=== PATIENT | female | born 2000 | race Caucasian/White ===

== ENCOUNTER 2020-04-29 14:58 | Emergency (ER) | payer BC, SELFPAY ==
[2020-04-29 15:00] VITALS: BP 130/76; PULSE 93; RESP 17; TEMP 36.1; O2SAT 97; BMI 27.8
--- NOTE | 2020-04-29 15:11 | CT_ITS ---
STUDY: CT ABDOMEN AND PELVIS WITH CONTRAST REASON FOR EXAM: Female, 19 years old. PT STATED RLQ PAIN X 1 WEEK RADIATION DOSAGE (If Supplied By Facility): CTDIvol = ( 13.44 ) mGy, DLP = ( 876.89 ) mGycm TECHNIQUE: Transaxial images were obtained from the dome of the diaphragm to the symphysis pubis without oral contrast. IV 100mL Isovue-300 was administered. Sagittal and coronal images were reconstructed. Individualized dose optimization techniques were used for this CT. COMPARISON: None. FINDINGS: The visualized lung bases are unremarkable. The visualized portions of the heart are within normal limits. Normal liver. Normal gallbladder and extrahepatic biliary system. Normal spleen. Normal pancreas. Normal bilateral adrenal glands. Normal right kidney. Normal left kidney. Normal visualized stomach. Normal small intestine. Normal colon. The appendix is visualized and appears normal. There are mildly enlarged lymph nodes in the right lower quadrant mesentery which short axis measuring less than 7 mm. Normal abdominal aorta. Normal inferior vena cava. Normal retroperitoneum. Normal urinary bladder. Normal abdominal wall. Normal osseous structures. CT/Abdomen/Pelvis W IV Cont ONLY IMPRESSION: 1. Normal CT appearance of the appendix. 2. Prominent lymph nodes in the right lower quadrant mesentery may represent reactive adenopathy or mesenteric adenitis. No dominant loyd mass. Electronically Signed: Mario Coleman MD ([place]) at 17:37 EDT , Service support ,
--- NOTE | 2020-04-29 15:13 | ED.DCSUM_ITS ---
History of Present Illness Chief Complaint: Abd Pain Informant: Patient, Family Onset: Days - 6 Context: Gradual Onset Timing: Continuous Current Severity: Severe Maximum Severity: Severe Narrative: 19 year-old female presents for abdominal pain. She states she started to have some vague abdominal pain in the periumbilical area about 6 days ago. She has had a few episodes of diarrhea this week. She states that the pain has gradually gotten worse and moved into the right lower quadrant. She states she went to an urgent care and had a urinalysis performed which was negative for infection. She was told to come here out of concern for appendicitis. Patient has nausea without vomiting. She feels generally unwell. She has not had a fever. Denies any vaginal complaints or urinary complaints. Past Medical History - Allergies and Home Meds Allergies/Adverse Reactions: Allergies No Known Allergies Allergy (Verified 04/29/20 14:59) Primary Care Physician: Oliverio Greenwood DO [Primary Care Provider] - Prior records reviewed: Yes Past Medical History: - - Kidney stones Lives: With Family Smoking Status: Never smoker Alcohol: None Drugs: None Review of Systems General: Denies: Chills, Fever, Malaise Eyes: Denies: Visual changes - bilaterally, Diplopia ENT: Denies: Rhinorrhea, Sore throat Cardiovascular: Denies: Chest pain, Palpitations Respiratory: Denies: Dyspnea, Cough, Dyspnea on exertion Gastrointestinal: Reports: Abdominal pain, Diarrhea. Denies: Melena, Hematochezia Genitourinary: Denies: Dysuria, Hematuria, Frequency Musculoskeletal: Denies: Myalgias Skin: Denies: Rash, Abscess Neurological: Denies: Headache Endocrine: Denies: Polyuria, Polydipsia Physical Exam Vital Signs/Narrative: Vital Signs Temp Pulse Resp BP Pulse Ox 04/29/20 15:00 96.9 F L 93 17 130/76 H 97 Inital Vital Signs reviewed: Yes General: Well nourished, Acute Distress - Mild distress holding her right lower quadrant. Head: Normocephalic, Atraumatic Eyes: Perrl ENT: Moist mucous membranes, No rhinorrhea Cardiovascular: Regular rate, Regular rhythm Abdomen: Rebound tenderness, Rovsig's sign, Townsend's sign. Negative for: Psoas sign Back: Nontender Extremities: Nontender Skin: Normal color, No rash Neurological: Alert, Oriented x3 Psychological: Normal affect Diagnostic/Tx/Re-eval - Medical Decision Making She presents with abdominal pain which is been going on for about a week. She states it is more in her right lower quadrant. She has a history of kidney stones but states it does not feel the same. She is not had any urinary or vaginal complaints. Her blood work shows a slight leukocytosis at 12.2. Her renal function is normal. She does have a small amount of blood in her urine, however given concern for possible appendicitis I did do a CT with IV contrast. There is no appendicitis and no stone was identified. Radiologist did mention prominent lymph nodes in the right lower quadrant mesentery may represent reactive adenopathy or mesenteric adenitis. On reevaluation the patient is comfortable. Given she has no acute surgical issue I do not believe she needs to stay in the hospital. Her family is present and able watcher. She is counseled that if she has continued pain in this area that she should come back tomorrow for repeat evaluation. Patient and family comfortable with that plan. ED Disposition - Plan for ED Patient: Disposition: Home or Assisted Living Diagnosis: Mesenteric adenitis Instructions: ED Abdominal Pain Appendx Poss, ED Adenitis Mesenteric Prescriptions: Hydrocodone Bitart/Apap 5-325 [[place] 5MG-325MG] 1 tab PO Q6H PRN PRN 2 Days #10 tab PRN Reason: Pain Prescription Printed Ondansetron [Zofran Odt] 4 mg PO Q8H PRN PRN #10 tab PRN Reason: Nausea Prescription Printed Referrals: Oliverio Greenwood DO [Primary Care Provider] -
[2020-04-29] MEDS: Morphine 4 MG/ML Syringe IV (15:38)
[2020-04-29] MEDS: 0.9% Normal Saline 1,000 ML 1000 ML IV (15:38)
[2020-04-29] MEDS: Ondansetron 4 MG/2 ML Vial IV (15:38)
[2020-04-29 15:43] LABS: Absolute Lymphocyte Count 2.26 X10^3/uL (0.83-4.51); Absolute Neutrophil Count 8.9 X10^3/uL (2.0-7.7); Basophil# 0.04 X10^3/uL; Basophil% 0.3 % (0-1); Eosinophil# 0.07 X10^3/uL; Eosinophils% 0.6 % (0-5); Hematocrit 40.6 % (37-47); Hemoglobin 13.1 g/dL (12.0-15.0); Lymphocyte # 2.26 X10^3/ul (4.0); Lymphocyte % 18.5 % (19-41); Mean Corp Hgb Conc 32.3 g/dL (32-36); Mean Corpuscular Hgb 28.8 pg (27.0-32.0); Mean Corpuscular Volume 89.2 fL (81-99); Mean Platelet Vol. 10.2 fl (6.2-12.0); Monocyte# 0.85 X10^3/uL; NRBC Flagged by Analyzer 0 % (0-5); Neutrophil # 8.94 X10^3/uL (2.7-7.7); Neutrophil % 73.4 % (47-70); Platelet Count 250 K/mm3 (150-450); RBC Distribution Width CV 12.8 % (11.6-14.6); RBC Distribution Width SD 41.1 fl (35.1-43.9); Red Blood Count 4.55 M/mm3 (4.2-5.4); White Blood Count 12.2 K/mm3 (4.4-11.0)
[2020-04-29 15:48] LABS: Anion Gap 7 (5-15); BUN 11 mg/dL (7-18); BUN/Creat Ratio 14.4 RATIO (10-20); Calcium,Total 8.7 mg/dL (8.5-10.1); Chloride 109 mmol/L (98-107); Creatinine, Serum 0.76 mg/dL (0.55-1.02); EST Glomerular Filtration Rate 102 mL/min (>60); Est Glom Filt Rate - Afr Amer 124 mL/min (>60); Estimated Creatinine Clearance 119.11 ml/min; Glucose 79 mg/dL (74-106); Sodium Level 139 mmol/L (136-145)
[2020-04-29 16:47] LABS: Mucous, Urine 0 SEEN /hpf (<or=2+); Squamous Epithelial Cells - UA 0 SEEN /hpf (5-10); White Blood Cells 0 SEEN /hpf (0-5)
[2020-04-29 16:51] LABS: Color, Urine Yellow (Yellow); Glucose, Dipstick Normal (Normal); Ketone-Dipstick 15 mg/dl (Negative); Leukocyte Esterase-Dipstick Negative /ul (Negative); Nitrite-Dipstick Negative (Negative); Occult Blood-Urine 250 /ul (Negative); Protein-Dipstick Negative (Negative); Urine Bilirubin Dipstick Negative (Negative); Urine Clarity Clear (Clear); Urine Urobilinogen Normal (Normal)
[2020-04-29 16:53] LABS: Internal QC Validated? YES +Cl - CLEAR BKGD; Pregnancy, Urine Negative Negative
[2020-04-29 17:05] LABS: Bacteria 1+ /hpf (None Seen); Red Blood Cells-Urine 0-5 SEEN /hpf (0-5)
[2020-04-29 17:32] VITALS: BP 133/80; PULSE 101; RESP 16; TEMP 36.5; O2SAT 100
== END 2020-04-29 19:05 | disposition home or self-care (01) ==
PROVIDERS: Emergency Provider Student in an Organized Health Care Education/Training Program; PCP Preventive Medicine Occupational Medicine
DX: I88.0 Nonspecific mesenteric lymphadenitis (principal); Z87.442 Personal history of urinary calculi
CPT/HCPCS: 74177; 80048; 81001; 81025; 85025; 96361; 96374; 96375; 99283; J7030; Q9967; A4216; J2405

== ENCOUNTER 2020-04-30 15:20 | Emergency (ER) | payer BC, SELFPAY ==
[2020-04-29 15:00] VITALS: BMI 27.8
[2020-04-30 15:22] VITALS: BP 113/62; BP 113/63; PULSE 72; PULSE 85; RESP 17; RESP 18; TEMP 36.6; O2SAT 99; BMI 27.6
--- NOTE | 2020-04-30 15:51 | CT_ITS ---
STUDY: CT ABDOMEN AND PELVIS WITH CONTRAST REASON FOR EXAM: Female, 19 years old. RT SIDED ABD PAIN, HAD CT ABD/PELVIS WITH IV ONLY YESTERDAY RADIATION DOSAGE (If Supplied By Facility): CTDIvol = ( 10.05 ) mGy, DLP = ( 687.6 ) mGycm TECHNIQUE: Transaxial images were obtained from the dome of the diaphragm to the symphysis pubis without oral contrast. Oral and amp; IV Gastrografin and amp; 100mL Isovue-300 was administered. Sagittal and coronal images were reconstructed. Individualized dose optimization techniques were used for this CT. COMPARISON: Yesterday FINDINGS: The visualized lung bases are unremarkable. The visualized portions of the heart are within normal limits. Normal liver. Normal gallbladder and extrahepatic biliary system. Normal spleen. Normal pancreas. Normal bilateral adrenal glands. Normal right kidney. Normal left kidney. Normal visualized stomach. Normal small intestine. Retained stool noted throughout the colon. The appendix is visualized and appears normal. Appendix best seen on coronal recon images 60 through 65. No periappendiceal inflammatory changes noted, there are stable subcentimeter lymph nodes in the right lower quadrant. Normal abdominal aorta. Normal inferior vena cava. Normal retroperitoneum. Normal urinary bladder. Normal visualized uterus. No suspicious adnexal mass or free fluid Normal abdominal wall. Normal osseous structures. CT/Abdomen/Pelvis WITH Contrast IMPRESSION: No suspicious solid organ abnormality No CT evidence of an acute inflammatory process, normal appendix visualized No free intraperitoneal fluid, air, or suspicious adenopathy Retained stool Electronically Signed: Sotero Kilpatrick MD at 17:46 EDT , Service support ,
--- NOTE | 2020-04-30 16:43 | ED.DCSUM_ITS ---
- ER Visit Summary Date of Service: 04/30/20 Chief Complaint: [Abdominal pain] History of Present Illness: The patient is a 19 F [resents to the emergency department complaint of abdominal pain that she has had off and on for approximately a week. Patient states that her pain really got worse yesterday and was seen in the emergency department and had a work-up which showed a slightly elevated white blood cell count. Patient had a CT scan of the abdomen pelvis without contrast that showed a normal appendix at that time and some slight enlarged adenopathy of the right lower quadrant. Urinalysis was unremarkable and hCG was negative at that time. States that she woke up this morning feeling somewhat improved but continued have some discomfort and went to work. Patient continues to have discomfort to the right lower quadrant is worse with walking and moving. She is had decreased appetite and nausea when she attempted to eat small amount of bread and peanut butter. Patient denies urinary symptoms. Her last menstrual period was about a month ago.] Physical Examination: [HEENT-PERRLA, EOMI. Cranial nerves II through XII grossly intact. TMs clear. Mucous membranes moist. No adenopathy. Cardiovascular-regular rate and rhythm without murmur or ectopy Lungs-clear to auscultation, chest wall stable without crepitus or subcu emphysema Abdomen-normoactive bowel sounds, soft. Patient has tenderness palpation over right lower quadrant some guarding. There is no rebound, rigidity, or peritoneal signs. Also has some mild tenderness over right upper quadrant. Townsend sign. No Rovsing's. Extremities-intact ?4, normal range of motion, normal pulses, atraumatic] Test Results: [Lab work and CT scan of the M pelvis with IV and p.o. contrast ordered and pending] Emergency Department Course and Treatment: We will establish an IV fluids started. She refused pain medication. [] Treatment Plan: [Patient turned over to evening physician awaiting lab results, CT results and final disposition.] Disposition: [Pending] Impression: [Abdominal pain] This note was generated with [employer] dictation software. It may contain incorrect words, spelling, and punctuation that were not noted in review of the chart prior to signing ED Disposition - Plan for ED Patient: Referrals: Oliverio Greenwood DO [Primary Care Provider] -
[2020-04-30 16:51] LABS: Absolute Lymphocyte Count 2.54 X10^3/uL (0.83-4.51); Absolute Neutrophil Count 4.6 X10^3/uL (2.0-7.7); Basophil# 0.03 X10^3/uL; Basophil% 0.4 % (0-1); Eosinophil# 0.12 X10^3/uL; Eosinophils% 1.5 % (0-5); Hematocrit 39.7 % (37-47); Lymphocyte # 2.54 X10^3/ul (4.0); Lymphocyte % 32.4 % (19-41); Mean Corp Hgb Conc 32.7 g/dL (32-36); Mean Corpuscular Volume 88.6 fL (81-99); Mean Platelet Vol. 10.2 fl (6.2-12.0); Monocyte# 0.54 X10^3/uL; Monocyte% 6.9 % (0-10); NRBC Flagged by Analyzer 0 % (0-5); Neutrophil # 4.58 X10^3/uL (2.7-7.7); Neutrophil % 58.4 % (47-70); Platelet Count 241 K/mm3 (150-450); RBC Distribution Width CV 12.5 % (11.6-14.6); RBC Distribution Width SD 40.4 fl (35.1-43.9); Red Blood Count 4.48 M/mm3 (4.2-5.4); White Blood Count 7.8 K/mm3 (4.4-11.0)
[2020-04-30] MEDS: 0.9% Normal Saline 1,000 ML 125 ML IV (17:00)
[2020-04-30 17:11] LABS: ALB/GLOB Ratio 0.9 RATIO (0.9-2.4); AST(SGOT) 16 U/L (15-37); Alanine Aminotransfer ALT/SGPT 20 U/L (13-56); Albumin, Serum 3.8 g/dL (3.2-5.0); Alkaline Phosphatase 67 U/L (45-117); Anion Gap 7 (5-15); BUN 10 mg/dL (7-18); BUN/Creat Ratio 13.6 RATIO (10-20); Calcium,Total 8.6 mg/dL (8.5-10.1); Chloride 109 mmol/L (98-107); Creatinine, Serum 0.74 mg/dL (0.55-1.02); EST Glomerular Filtration Rate 107 mL/min (>60); Est Glom Filt Rate - Afr Amer 129 mL/min (>60); Estimated Creatinine Clearance 122.33 ml/min; Globulin 4.1 g/dL (2.2-4.2); Glucose 67 mg/dL (74-106); Potassium 3.6 mmol/L (3.5-5.1); Protein, Total 7.9 g/dL (6.4-8.2); Sodium Level 139 mmol/L (136-145)
--- NOTE | 2020-04-30 18:38 | US_ITS ---
STUDY: ULTRASOUND OF THE FEMALE PELVIS - COMPLETE REASON FOR EXAM: Female, 19 years old. RT SIDE PAIN-LOWER X 2 DAYS, LMP: 04/07/2020 TECHNIQUE: Transvaginal TECHNICAL QUALITY: Adequate. COMPARISON: None. FINDINGS: The uterus is anteverted and is in a midline position. The uterus measures 6.2 x 4.2 x 2.3 cm. Normal uterine cervix. The endometrium measures 2 mm in thickness, and is hyperechoic. There is no demonstrated endometrial mass. There is no demonstrated myometrial mass. I.U.D. - The patient does not have an I.U.D. The right ovary is visualized. The right ovary measures 2.5 x 1.8 x 1.9 cm. There is no right ovarian cyst or ovarian mass. There is no visualized right adnexal mass or complex lesion. There is normal arterial and normal venous vascularity. The left ovary is visualized. The left ovary measures 2.1 x 2.2 x 1.2 cm. There is no left ovarian cyst or ovarian mass. There is no visualized left adnexal mass or complex lesion. There is normal arterial and normal venous vascularity. There is no fluid in the cul-de-sac. The bladder is sonographically normal US/Transvaginal Non- IMPRESSION: No suspicious sonographic findings Electronically Signed: Sotero Kilpatrick MD at 19:15 EDT , Service support ,
[2020-04-30 19:53] VITALS: BP 127/70; PULSE 67; RESP 16; O2SAT 100
[2020-04-30 20:10] VITALS: BP 127/70; PULSE 67; RESP 16; O2SAT 100
== END 2020-04-30 20:11 | disposition home or self-care (01) ==
PROVIDERS: Emergency Medicine; Emergency Provider Student in an Organized Health Care Education/Training Program; PCP Preventive Medicine Occupational Medicine
DX: R10.9 Unspecified abdominal pain (principal); R11.2 Nausea with vomiting, unspecified; R59.9 Enlarged lymph nodes, unspecified
CPT/HCPCS: 74177; 76830; 80053; 85025; 93976; 99283; J7030; Q9967; A4216

== ENCOUNTER 2025-07-25 07:34 | Emergency (ER) | payer BC, SELFPAY ==
[2025-07-25 07:35] VITALS: BP 137/74; PULSE 65; RESP 16; TEMP 36.6; O2SAT 99; BMI 28.2
--- NOTE | 2025-07-25 08:07 | CT_ITS ---
PROCEDURE: BRAIN/HEAD WITHOUT CONTRAST 07/25/2025 REASON FOR EXAM: PAIN TECHNIQUE: Procedure Code: CTBR Modality: CT Procedure: BRAIN/HEAD WITHOUT CONTRAST Coronal and Sagittal reconstruction series were provided. One or more dose reduction techniques were used (e.g., Automated exposure control, adjustment of the mA and/or kV according to patient size, use of iterative reconstruction technique. RADIATION DOSE SUMMARY: CTDlvol: 45 mGy DLP: 812 mGycm COMPARISON: None FINDINGS: Brain: There is no evidence of hemorrhage, acute ischemia or mass. No extra- axial fluid collection, midline shift or mass effect. CSF Spaces: Normal Sinuses/Mastoids: Clear Bones: No fracture CT/Brain/Head without Contrast IMPRESSION: No acute intracranial abnormality Reading Location: [id number]
[2025-07-25] MEDS: 0.9% Normal Saline (1000mL) 1,000 ML 999 ML IV (08:19)
--- NOTE | 2025-07-25 08:38 | EX.ED.VIS.HA ---
HPI History of Present Illness Chief Complaint: Headache Informant: patient Narrative Narrative: Patient is a 24-year-old female presenting with worsening headaches. She states after having her child about a year ago she started getting migraines about once a month. States before that she never had migraines. She states was precipitated by having a CSF leak after her epidural which was treated. She notes that over the past few months she has had increased frequency and length of her migraines. She states she consistently has associated pain that runs like a band over the center of her head from her forehead backwards as well as another band that goes over the left side of her forehead towards her religion area. Describes the pain as burning (almost as if her hair has been pulled back too tight). She gets associated nausea, vomiting, light and sound sensitivity as well as decreased appetite. States this headache has been going on for 15 days now. Worse when she is active and better with resting. Denies any recent fevers. Notes yesterday she was seeing black spots and is having a hard time eating because of the severity of her symptoms and no appetite. She has been following with her primary care doctor and last week was prescribed rizatriptan which did not provide any relief. Last she received a shot of Toradol with no relief. She has an MRI scheduled of her brain but it is 1-1/2 weeks away. She called her PCP today and they recommend she come to the ER for further evaluation. She denies any associated weakness or current vision changes. She states she sometimes does get some watering in her left eye. She notes that after receiving a Toradol shot she has been having intermittent tingling/paresthesias to her left arm but denies any weakness or dropping anything. Denies any skin changes or rash. Nuys any family history of any neurologic disorders. No other complaints or concerns at this time. PFSH PFS Medical History no medical history Home Medications ?Medication ?Instructions ?Recorded ?Last Taken ?Type ondansetron 4 mg disintegrating 4 mg PO Q8H PRN PRN Nausea #10 tabs 04/29/20 Unknown Rx tablet desogestrel 0.15 mg-ethinyl 1 tab PO DAILY 04/30/20 Unknown History estradiol 0.03 mg tablet Allergy/AdvReac Type Severity Reaction Status Date / Time No Known Allergies Allergy Verified 07/25/25 07:37 Social History Smoking Status: Never smoker ROS ROS ED Constitutional Constitutional ED: Denies chills or fever(s) Eyes Eyes: Reports other Details: seeing black spots yesterday ; Denies blurry vision ENT ENT ED: Denies sore throat Respiratory/Chest Respiratory/Chest: Denies cough or dyspnea Gastrointestinal Gastrointestinal: Reports nausea and vomiting Musculoskeletal Musculoskeletal: Denies arthralgias, myalgias or neck pain Integumentary Denies rash Neurologic Neurologic: Reports headache(s) and paresthesias LUE; Denies weakness Psychiatric Psychiatric: Denies anxiety Hematologic/Lymphatic Hematologic/Lymphatic: Denies easy bleeding or easy bruising EXAM Physical Exam Const Vital Signs: 07/25/25 07:35 07/25/25 09:05 Temperature 97.9 F Temperature Source Oral Pulse Rate 65 67 Respiratory Rate 16 16 Blood Pressure 137/74 H 111/65 Blood Pressure Mean 95 80 Pulse Ox 99 99 Oxygen Delivery Method Room Air Room Air Positive well nourished and well developed General Appearance ED: well developed and NAD HEENT Reports normocephalic, TM's clear and moist mucous membranes Tympanic Membrane ED: Yes TM's clear Neck no lymphadenopathy, supple, no meningeal signs and no JVD Resp normal respiratory effort Cardio regular rate and regular rhythm Back/Spine Cervical Spine: Negative for cervical spine tenderness Extremity normal to inspection and full ROM Neuro oriented x3, CN's II-XII intact bilaterally and no sensory deficits noted Sensorium / Orientation: awake and alert Speech: speech normal Gait (Neuro): normal gait Motor Exam: strength 5/5 throughout Psych mental status grossly normal Skin Lesions: no lesions Rashes: no rashes MDM MDM MDM Narrative Medical decision making narrative: Patient evaluated for increasing and persistent headaches. Differential includes is not limited to cervical neuralgia, tension headaches, migraine headaches as well as space-occupying lesion or chronic subdural hemorrhage (lower risk given no report of trauma). Headaches have been going on for a year and worse over 3 months a low suspicion for infectious etiology/meningitis. Will obtain CT of the brain he is never had any prior neuroimaging looking for any space-occupying lesion or signs of CSF obstruction. Patient given migraine cocktail including IV fluids, Toradol and Compazine. On repeat evaluation patient is feeling much improved. CT imaging does not show any acute intracranial process. Patient encouraged to follow-up with primary care as well as for outpatient MRI. Will be given referral for neurology. She verbalized agreement understand this plan. Discharged home in stable condition. Radiography Diagnostic Testing: Clinical Impression(s) from Imaging Studies Brain CT 07/25/25 08:07 IMPRESSION: No acute intracranial abnormality Reading Location: [facility] Discharge Plan Triage Chief Complaint: Headache ED Provider: Tressa Armijo Dx/Rx/DC Orders Clinical Impression: Headache Instructions: ED Headache Unspecified Prescriptions: No Action ondansetron 4 MG tablet 4 mg PO Q8H PRN PRN (Reason: Nausea) Qty: 10 0RF desogestrel-ethinyl estradiol 0.15-0.03 mg tablet 1 tab PO DAILY Primary Care Provider: Basia Gupta NP Referrals: Jose Raul Pressley MD [Non-Staff -Ordering Privileges, Neurology] Basia Gupta NP, CO DIRECTOR-C [Primary Care Provider, Family Practice] Activity Restrictions/Additional Instructions: You may continue to alternate ibuprofen and Tylenol for headache relief. Please follow-up outpatient with your MRI with your primary doctor. You have been given information for neurology as well. Discussed either with your primary care doctor or neurology further abortive or preventative headache prescriptions. Print Language: Welsh Disposition Disposition: Home, Self Care
[2025-07-25 09:05] VITALS: BP 111/65; PULSE 67; RESP 16; O2SAT 99
[2025-07-25 09:52] VITALS: BP 111/65; PULSE 67; RESP 16; TEMP 36.6; O2SAT 99
== END 2025-07-25 09:53 | disposition home or self-care (01) ==
PROVIDERS: Emergency Provider Emergency Medicine; PCP Nurse Practitioner Family; Visit Provider Emergency Medicine
DX: R51.9 Headache, unspecified (principal); R11.2 Nausea with vomiting, unspecified
CPT/HCPCS: 70450; 96361; 96374; 99283; A4216